=== PATIENT | male | born 1970 | race Two or more races ===

== ENCOUNTER 2017-10-10 08:40 | Inpatient (IN) | payer OTHER ==
[2017-10-10 09:54] VITALS: BMI 23.5
--- NOTE | 2017-10-10 12:14 | HP ---
COWS - Scale Resting Pulse: 0= [place] 80 or Below Sweatin= Chills/Flushing Restless Observation: 1= Difficult to Sit Still Pupil Size: 1= Pupils >than Normal Bone or Joint Aches: 1= Mild Discomfort Runny Nose/ Eye Tearin= Nasal Congestion GI Upset > 30mins: 2= Nausea/Diarrhea Tremor Observation: 1= Tremor Reform, Not Seen Yawning Observation: 2= >3x During Session Anxiety or Irritability: 2=Irritable/Anxious Goose Flesh Skin: 3=Piloerection COWS Score: 15 Admission ROS S - [facility] Chief Complaint: heroin withdrawal sx Allergies/Adverse Reactions: Allergies Allergy/AdvReac Type Severity Reaction Status Date / Time No Known Allergies Allergy Verified 10/10/17 10:07 History of Present Illness: 47 yo m starte d using heroin several monts ago requesting inpatient detox for opiod withdrawal sx, sniffing 1-2 bundles daily. PMHX neg, no suicidal ideation , no seizures. thirsty, anxiety, depression and insomnia Exam Limitations: No Limitations - Ebola screening Have you traveled outside of the country in the last 21 days: No (N) Have you had contact with anyone from an Ebola affected area: No Have you been sick,other than usual withdrawal symptoms: No Do you have a fever: No - Review of Systems Constitutional: Chills, Diaphoresis, Night Sweats, Changes in sleep, Unintentional Wgt. Loss EENT: reports: Tearing, Nose Congestion Respiratory: reports: No Symptoms reported Cardiac: reports: No Symptoms Reported GI: reports: Constipated, Nausea, Poor Appetite, Poor Fluid Intake, Vomiting, Indigestion, Abdominal cramping : reports: No Symptoms Reported Musculoskeletal: reports: Back Pain, Joint Pain, Muscle Pain Integumentary: reports: Flushing, Sweating Neuro: reports: Numbness, Tingling, Tremors Endocrine: reports: Increased Thirst Hematology: reports: No Symptoms Reported Psychiatric: reports: Judgement Intact, Mood/Affect Appropiate, Orientated x3, Anxious, Depressed Other Systems: Reviewed and Negative Patient History - Patient Medical History Hx Anemia: No Hx Asthma: No Hx Chronic Obstructive Pulmonary Disease (COPD): No Hx Cancer: No Hx Cardiac Disorders: No Hx Congestive Heart Failure: No Hx Hypertension: No Hx Hypercholesterolemia: No Hx Pacemaker: No HX Cerebrovascular Accident: No Hx Seizures: No Hx Dementia: No Hx Diabetes: No Hx Gastrointestinal Disorders: Yes (acid reflux) Hx Liver Disease: No Hx Genitourinary Disorders: No Hx Sexually Transmitted Disorders: No Hx Renal Disease (ESRD): No Hx Thyroid Disease: No Hx Human Immunodeficiency Virus (HIV): No Hx Hepatitis C: No Hx Depression: Yes (withdrawal sx) Hx Suicide Attempt: No Hx Bipolar Disorder: No Hx Schizophrenia: No - Patient Surgical History Past Surgical History: No Hx Neurologic Surgery: No Hx Cataract Extraction: No Hx Cardiac Surgery: No Hx Lung Surgery: No Hx Breast Surgery: No Hx Breast Biopsy: No Hx Abdominal Surgery: No Hx Appendectomy: No Hx Cholecystectomy: No Hx Genitourinary Surgery: No Hx Section: No Hx Orthopedic Surgery: Yes Anesthesia Reaction: No - PPD History Previous Implant?: Yes Documented Results: Negative w/o proof Implanted On Prior R Admission?: No PPD to be Administered?: Yes - Reproductive History Patient is a Female of Child Bearing Age (11 -55 yrs old): No Patient : No - Smoking Cessation Smoking history: Current every day smoker Have you smoked in the past 12 months: Yes Aproximately how many cigarettes per day: 20 Hx Chewing Tobacco Use: No Initiated information on smoking cessation: Yes 'Breaking Loose' booklet given: 10/10/17 - Substance & Tx. History Hx Alcohol Use: No Hx Substance Use: Yes Substance Use Type: Heroin, Opiates Hx Substance Use Treatment: No (1st episode, court mandated) - Substances Abused Heroin Route: Inhalation Frequency: Daily Amount used: 10 bags Age of first use: 30 Date of Last Use: 10/09/17 Family Disease History - Family Disease History Family History: Denies Admission Physical Exam [facility] - Vital Signs Vital Signs: Vital Signs - 24 hr 10/10/17 09:50 Temperature 97 F L Pulse Rate 76 Respiratory 18 Rate Blood Pressure 121/90 - Physical General Appearance: Yes: Nourished, Appropriately Dressed, Disheveled, Mild Distress, Thin, Tremorous, Irritable, Sweating, Anxious HEENTM: Yes: EOMI, Hearing grossly Normal, Normocephalic, Normal Voice, PATEL, Pharynx Normal, Nasal Congestion, Rhinorrhea Respiratory: Yes: Within Normal Limits, Chest Non-Tender, Lungs Clear, Normal Breath Sounds, No Respiratory Distress, No Accessory Muscle Use Neck: Yes: Within Normal Limits, No masses,lesions,Nodules, Supple, Trachea in good position Breast: Yes: Breast Exam Deferred Cardiology: Yes: Within Normal Limits, Regular Rhythm, Regular Rate, S1, S2 Abdominal: Yes: Within Normal Limits, Normal Bowel Sounds, Non Tender, Flat, Soft Genitourinary: Yes: Within Normal Limits Back: Yes: Within Normal Limits, Normal Inspection Musculoskeletal: Yes: full range of Motion, Gait Steady, Pelvis Stable, Back pain Extremities: Yes: Normal Capillary Refill, Normal Range of Motion, Non-Tender, Tremors Neurological: Yes: commodity merchant II-XII NML intact, Fully Oriented, Alert, Motor Strength 5/5, Normal Response, Depressed Affect Integumentary: Yes: Normal Color, Dry, Warm Lymphatic: Yes: Within Normal Limits - Addiitonal Findings: withdrawal sx - Diagnostic (1) Opioid dependence with withdrawal Current Visit: Yes Status: Acute (2) Dehydration Current Visit: Yes Status: Acute (3) Depression Current Visit: Yes Status: Acute (4) Nicotine dependence Current Visit: Yes Status: Acute (5) GERD (gastroesophageal reflux disease) Current Visit: Yes Status: Acute Cleared for Admission [facility] - Detox or Rehab [facility] Level of Care: Medically Managed Detox Regimen/Protocol: Methadone [facility] Breath Alcohol Content Breath Alcohol Content: 0 Urine Drug Screen - Results Drug Screen Negative: No Urine Drug Screen Results: OPI-Opiates, OXY-Oxycodone
[2017-10-10] MEDS ORDERED: LOPERAMIDE HCL 2 MG CAPSULE PO PRN (12:16)
[2017-10-10] MEDS ORDERED: hydrOXYzine PAMOATE 50 MG CAPSULE (FP) PO PRN (12:16)
[2017-10-10] MEDS ORDERED: MENTHOL/PHENOL 1 EACH UD MM PRN (12:16)
[2017-10-10] MEDS ORDERED: ACETAMINOPHEN 325 MG TABLET (FP) PO PRN (12:16)
[2017-10-10] MEDS ORDERED: MAGNESIUM HYDROX 2400MG/30ML ORAL SUSPENSION 30 ML CUP PO PRN (12:16)
[2017-10-10] MEDS ORDERED: IBUPROFEN 400 MG TABLET (FP) PO PRN (12:16)
[2017-10-10] MEDS ORDERED: guaiFENesin/D-METHORPHAN HB 10 ML UNIT-DOSE CUPS PO PRN (12:16)
[2017-10-10] MEDS ORDERED: P-EPHED 60MG/TRIPROLIDI 2.5MG TABLET PO PRN (12:16)
[2017-10-10] MEDS ORDERED: MAGNESIUM CITRATE 300 ML BOTTLE PO PRN (12:16)
[2017-10-10] MEDS ORDERED: MAG HYDROX/AL HYDROX/SIMETH 30 ML UNIT-DOSE CUP PO PRN (12:16)
[2017-10-10] MEDS ORDERED: NICOTINE POLACRILEX 4 MG GUM BUC PRN (12:16)
[2017-10-10] MEDS ORDERED: METHADONE HCL 10 MG TABLET (FOR DETOX USE ONLY) PO ONE ×2 (12:45→23:00)
[2017-10-10] MEDS: diazePAM 5 MG TABLET PO PRN ×2 (13:55→22:17)
[2017-10-10] MEDS: NICOTINE 21 MG/24 HOURS TOPICAL PATCH TD SCH (13:56)
--- NOTE | 2017-10-10 16:45 | CONSULT ---
[facility] Psychiatric Consult - Data Date of interview: 10/10/17 Admission source: [facility] Identifying data: Pt. is a 47 year old single male, father of one, employed ( "off the books"), and lives alone in an apartment. This is patient's first admission to detox. Pt. admitted to for opiate dependence. Substance Abuse History: Following information confirmed with Mr. Esparza: Smoking Cessation. Smoking history: Current every day smoker. Have you smoked in the past 12 months: Yes. Aproximately how many cigarettes per day: 20. Hx Chewing Tobacco Use: No. Initiated information on smoking cessation: Yes. ' Breaking Loose' booklet given: 10/10/17. - Substance & Tx. History. Hx Alcohol Use: No. Hx Substance Use: Yes. Substance Use Type: Heroin, Opiates. Hx Substance Use Treatment: No (1st episode, court mandated). - Substances Abused. Heroin. Route: Inhalation. Frequency: Daily. Amount used: 10 bags. Age of first use: 30. Date of Last Use: 10/09/17 Medical History: Denies. Psychiatric History: Pt. denies h/o psychiatric hospitalizations, suicide attempts, and outpatient care. Physical/Sexual Abuse/Trauma History: Denies. Mental Status Exam - Mental Status Exam Alert and Oriented to: Time, Place, Person Cognitive Function: Good Patient Appearance: Well Groomed Mood: Withdrawn Affect: Mood Congruent Patient Behavior: Fatigued, Cooperative Speech Pattern: Delayed Voice Loudness: Moderately Soft/Quiet Thought Process: Goal Oriented Thought Disorder: Not Present Hallucinations: Denies Suicidal Ideation: Denies Homicidal Ideation: Denies Insight/Judgement: Poor Sleep: Poorly Appetite: Poor Muscle strength/Tone: Normal Gait/Station: Normal Psychiatric Findings - Problem List ([place] 1, 2,3) (1) Insomnia Current Visit: Yes Status: Acute (2) Nicotine dependence Current Visit: Yes Status: Acute (3) Opioid dependence with withdrawal Current Visit: Yes Status: Acute - Initial Treatment Plan Initial Treatment Plan: Psychoeducation provided. Detoxification provided. Ambien 5mg qhs ordered for insomnia. Benefits and side effects (sleep walking) discussed. Verbal consent given. Will continue to monitor.
[2017-10-10] MEDS: ZOLPIDEM TARTRATE 5 MG TABLET PO PRN (22:17)
[2017-10-10] MEDS: THIAMINE HCL 100 MG TABLET (FP) PO SCH (22:17)
[2017-10-10 22:37] LABS: URINE APPEARANCE TURBID; URINE BILIRUBIN NEGATIVE (NEGATIVE); URINE BLOOD NEGATIVE (NEGATIVE); URINE COLOR YELLOW; URINE GLUCOSE (UA) NEGATIVE (NEGATIVE); URINE KETONE TRACE (NEGATIVE); URINE LEUK ESTERASE NEGATIVE (NEGATIVE); URINE NITRITE NEGATIVE (NEGATIVE); URINE PROTEIN NEGATIVE (NEGATIVE); URINE UROBILINOGEN 4.0 E.U/dl mg/dL (0.2-1.0)
[2017-10-11] MEDS ORDERED: METHADONE HCL 10 MG TABLET (FOR DETOX USE ONLY) PO ONE (10:00)
[2017-10-11] MEDS: diazePAM 5 MG TABLET PO PRN ×2 (10:02→22:07)
[2017-10-11] MEDS: PRENATAL VITAMINS W/ FOLIC ACID TABLET (FP) PO SCH (10:02)
[2017-10-11] MEDS: NICOTINE 21 MG/24 HOURS TOPICAL PATCH TD SCH (10:03)
[2017-10-11 11:06] LABS: HEMATOCRIT 35.9 % (35.4-49); HEMOGLOBIN 12.2 GM/dL (11.7-16.9); MCH 30.4 pg (25.7-33.7); MCHC 34.1 g/dl (32.0-35.9); MEAN CELL VOLUME 89.1 fl (80-96); MEAN PLT VOLUME 9.2 fl (7.5-11.1); PLATELET COUNT 262 K/MM3 (134-434); RBC 4.03 M/mm3 (4.00-5.60); WHITE BLOOD COUNT 6.9 K/mm3 (4.0-10.0)
[2017-10-11 11:15] LABS: ANION GAP 8 (8-16); BILIRUBIN,TOTAL 0.5 mg/dL (0.2-1.0); BLOOD UREA NITROGEN 15 mg/dL (7-18); CHLORIDE 101 mmol/L (98-107); CO2 31 mmol/L (21-32); CREATININE 0.9 mg/dL (0.7-1.3); GLUCOSE,RANDOM 90 mg/dL (74-106); POTASSIUM 4.3 mmol/L (3.5-5.1); SGOT/AST 19 U/L (15-37); SGPT/ALT 25 U/L (12-78); SODIUM 140 mmol/L (136-145)
[2017-10-11 11:16] LABS: ALK PHOS 76 U/L (45-117); TOT PROT 7.5 g/dl (6.4-8.2)
--- NOTE | 2017-10-11 11:58 | EKG ---
Test Reason : Blood Pressure : / mmHG Vent. Rate : 061 BPM Atrial Rate : 061 BPM P-R Int : 178 ms QRS Dur : 080 ms QT Int : 394 ms P-R-T Axes : 064 075 045 degrees QTc Int : 396 ms NORMAL SINUS RHYTHM NORMAL ECG NO PREVIOUS ECGS AVAILABLE Confirmed by MD MORAIMA, EVELINE ([id number]) on 10/11/2017 11:57:47 AM Referred By: Confirmed By:EVELINE VALERA MD
--- NOTE | 2017-10-11 13:01 | PN ---
[facility] COWS - Scale Resting Pulse: 0= [place] 80 or Below Sweatin= Chills/Flushing Restless Observation: 3= Extraneous Movement Pupil Size: 1= Pupils >than Normal Bone or Joint Aches: 2= Severe Diffuse Aches Runny Nose/ Eye Tearin= Runny Nose/Eyes GI Upset > 30mins: 3= Vomiting/Diarrhea Tremor Observation of Outstretched Hands: 2= Slight Tremor Visible Yawning Observation: 1= 1-2x During Session Anxiety or Irritability: 2=Irritable/Anxious Goose Flesh Skin: 0=Smooth Skin COWS Score: 17 S Progress Note (SOAP) Subjective: ALERT,IRRITABLE,ANXIOUS,INTERRUPTED SLEEP,TREMOR,PAIN IN THE BODY AND BACK Objective: 10/11/17 12:59 Vital Signs Temperature 99.9 F H 10/11/17 11:41 Pulse Rate 60 10/11/17 11:41 Respiratory Rate 16 10/11/17 11:41 Blood Pressure 110/72 10/11/17 11:41 O2 Sat by Pulse Oximetry (%) EKG NSR,NORMAL ECG Laboratory Last Values WBC 6.9 K/mm3 (4.0-10.0) 10/11/17 05:40 RBC 4.03 M/mm3 (4.00-5.60) 10/11/17 05:40 Hgb 12.2 GM/dL (11.7-16.9) 10/11/17 05:40 Hct 35.9 % (35.4-49) 10/11/17 05:40 MCV 89.1 fl (80-96) 10/11/17 05:40 MCH 30.4 pg (25.7-33.7) 10/11/17 05:40 MCHC 34.1 g/dl (32.0-35.9) 10/11/17 05:40 RDW 14.0 % (11.9-15.9) 10/11/17 05:40 Plt Count 262 K/MM3 (134-434) 10/11/17 05:40 MPV 9.2 fl (7.5-11.1) 10/11/17 05:40 Sodium 140 mmol/L (136-145) 10/11/17 05:40 Potassium 4.3 mmol/L (3.5-5.1) 10/11/17 05:40 Chloride 101 mmol/L (98-107) 10/11/17 05:40 Carbon Dioxide 31 mmol/L (21-32) 10/11/17 05:40 Anion Gap 8 (8-16) 10/11/17 05:40 BUN 15 mg/dL (7-18) 10/11/17 05:40 Creatinine 0.9 mg/dL (0.7-1.3) 10/11/17 05:40 Creat Clearance w eGFR > 60 (>60) 10/11/17 05:40 Random Glucose 90 mg/dL (74-106) 10/11/17 05:40 Calcium 9.0 mg/dL (8.5-10.1) 10/11/17 05:40 Total Bilirubin 0.5 mg/dL (0.2-1.0) 10/11/17 05:40 AST 19 U/L (15-37) 10/11/17 05:40 ALT 25 U/L (12-78) 10/11/17 05:40 Alkaline Phosphatase 76 U/L (45-117) 10/11/17 05:40 Total Protein 7.5 g/dl (6.4-8.2) 10/11/17 05:40 Albumin 4.0 g/dl (3.4-5.0) 10/11/17 05:40 Urine Color Yellow 10/10/17 21:30 Urine Appearance Turbid 10/10/17 21:30 Urine pH 5.0 (5.0-8.0) 10/10/17 21:30 Ur Specific [place] 1.030 (1.001-1.035) 10/10/17 21:30 Urine Protein Negative (NEGATIVE) 10/10/17 21:30 Urine Glucose (UA) Negative (NEGATIVE) 10/10/17 21:30 Urine Ketones Trace (NEGATIVE) H 10/10/17 21:30 Urine Blood Negative (NEGATIVE) 10/10/17 21:30 Urine Nitrite Negative (NEGATIVE) 10/10/17 21:30 Urine Bilirubin Negative (NEGATIVE) 10/10/17 21:30 Urine Urobilinogen 4.0 e.u/dl mg/dL (0.2-1.0) 10/10/17 21:30 Ur Leukocyte Esterase Negative (NEGATIVE) 10/10/17 21:30 10/11/17 13:00 LABS PENDING Assessment: 10/11/17 13:00 WITHDRAWAL SYMPTOM Plan: CONTINUE DETOX
[2017-10-11 13:04] LABS: SICKLE CELL SCREEN NEGATIVE (NEGATIVE)
[2017-10-11] MEDS: ZOLPIDEM TARTRATE 5 MG TABLET PO PRN (22:07)
[2017-10-11] MEDS: THIAMINE HCL 100 MG TABLET (FP) PO SCH (22:07)
[2017-10-12] MEDS ORDERED: METHADONE HCL 5 MG TABLET (FOR DETOX USE ONLY) PO ONE (10:00)
[2017-10-12] MEDS: NICOTINE 21 MG/24 HOURS TOPICAL PATCH TD SCH (10:05)
[2017-10-12] MEDS: PRENATAL VITAMINS W/ FOLIC ACID TABLET (FP) PO SCH (10:05)
--- NOTE | 2017-10-12 10:15 | PN ---
[facility] COWS - Scale Resting Pulse: 0= [place] 80 or Below Sweatin= Chills/Flushing Restless Observation: 1= Difficult to Sit Still Pupil Size: 1= Pupils >than Normal Bone or Joint Aches: 2= Severe Diffuse Aches Runny Nose/ Eye Tearin= Runny Nose/Eyes GI Upset > 30mins: 1= Stomach Cramp Tremor Observation of Outstretched Hands: 2= Slight Tremor Visible Yawning Observation: 2= >3x During Session Anxiety or Irritability: 2=Irritable/Anxious Goose Flesh Skin: 0=Smooth Skin COWS Score: 14 S Progress Note (SOAP) Subjective: 47 years old male admitted for heroin detox, requested early discharge upon admission, modification had been made for early discharge. 10/14/17 patient demands to leave 10/13/17 which is two days prior to routine completion 10/15/17 patient informed that consider follow the plan as arranged upon admission joint aches running nose restlessness Objective: 10/12/17 10:16 Vital Signs Temperature 98.4 F 10/12/17 08:01 Pulse Rate 68 10/12/17 08:01 Respiratory Rate 18 10/12/17 08:01 Blood Pressure 96/60 10/12/17 08:01 O2 Sat by Pulse Oximetry (%) Laboratory Last Values WBC 6.9 K/mm3 (4.0-10.0) 10/11/17 05:40 RBC 4.03 M/mm3 (4.00-5.60) 10/11/17 05:40 Hgb 12.2 GM/dL (11.7-16.9) 10/11/17 05:40 Hct 35.9 % (35.4-49) 10/11/17 05:40 MCV 89.1 fl (80-96) 10/11/17 05:40 MCH 30.4 pg (25.7-33.7) 10/11/17 05:40 MCHC 34.1 g/dl (32.0-35.9) 10/11/17 05:40 RDW 14.0 % (11.9-15.9) 10/11/17 05:40 Plt Count 262 K/MM3 (134-434) 10/11/17 05:40 MPV 9.2 fl (7.5-11.1) 10/11/17 05:40 Sickle Cell Screen Negative (NEGATIVE) 10/11/17 05:40 Sodium 140 mmol/L (136-145) 10/11/17 05:40 Potassium 4.3 mmol/L (3.5-5.1) 10/11/17 05:40 Chloride 101 mmol/L (98-107) 10/11/17 05:40 Carbon Dioxide 31 mmol/L (21-32) 10/11/17 05:40 Anion Gap 8 (8-16) 10/11/17 05:40 BUN 15 mg/dL (7-18) 10/11/17 05:40 Creatinine 0.9 mg/dL (0.7-1.3) 10/11/17 05:40 Creat Clearance w eGFR > 60 (>60) 10/11/17 05:40 Random Glucose 90 mg/dL (74-106) 10/11/17 05:40 Calcium 9.0 mg/dL (8.5-10.1) 10/11/17 05:40 Total Bilirubin 0.5 mg/dL (0.2-1.0) 10/11/17 05:40 AST 19 U/L (15-37) 10/11/17 05:40 ALT 25 U/L (12-78) 10/11/17 05:40 Alkaline Phosphatase 76 U/L (45-117) 10/11/17 05:40 Total Protein 7.5 g/dl (6.4-8.2) 10/11/17 05:40 Albumin 4.0 g/dl (3.4-5.0) 10/11/17 05:40 Urine Color Yellow 10/10/17 21:30 Urine Appearance Turbid 10/10/17 21:30 Urine pH 5.0 (5.0-8.0) 10/10/17 21:30 Ur Specific [place] 1.030 (1.001-1.035) 10/10/17 21:30 Urine Protein Negative (NEGATIVE) 10/10/17 21:30 Urine Glucose (UA) Negative (NEGATIVE) 10/10/17 21:30 Urine Ketones Trace (NEGATIVE) H 10/10/17 21:30 Urine Blood Negative (NEGATIVE) 10/10/17 21:30 Urine Nitrite Negative (NEGATIVE) 10/10/17 21:30 Urine Bilirubin Negative (NEGATIVE) 10/10/17 21:30 Urine Urobilinogen 4.0 e.u/dl mg/dL (0.2-1.0) 10/10/17 21:30 Ur Leukocyte Esterase Negative (NEGATIVE) 10/10/17 21:30 lab noted Assessment: 10/12/17 10:16 withdrawal sx Plan: continue detox recommend follow early discharge plan as arranged upon admission 10/14/17
[2017-10-12] MEDS: diazePAM 5 MG TABLET PO PRN (22:12)
[2017-10-12] MEDS: THIAMINE HCL 100 MG TABLET (FP) PO SCH (22:12)
[2017-10-12] MEDS: ZOLPIDEM TARTRATE 5 MG TABLET PO PRN (22:12)
--- NOTE | 2017-10-13 09:21 | PN ---
S Progress Note (SOAP) Subjective: alert oriented x 3 tolerates food and fluid well mild sweat no tremor Objective: 10/13/17 09:21 Vital Signs Temperature 97.9 F 10/13/17 06:00 Pulse Rate 60 10/13/17 06:00 Respiratory Rate 16 10/13/17 06:00 Blood Pressure 104/64 10/13/17 06:00 O2 Sat by Pulse Oximetry (%) Laboratory Last Values WBC 6.9 K/mm3 (4.0-10.0) 10/11/17 05:40 RBC 4.03 M/mm3 (4.00-5.60) 10/11/17 05:40 Hgb 12.2 GM/dL (11.7-16.9) 10/11/17 05:40 Hct 35.9 % (35.4-49) 10/11/17 05:40 MCV 89.1 fl (80-96) 10/11/17 05:40 MCH 30.4 pg (25.7-33.7) 10/11/17 05:40 MCHC 34.1 g/dl (32.0-35.9) 10/11/17 05:40 RDW 14.0 % (11.9-15.9) 10/11/17 05:40 Plt Count 262 K/MM3 (134-434) 10/11/17 05:40 MPV 9.2 fl (7.5-11.1) 10/11/17 05:40 Sickle Cell Screen Negative (NEGATIVE) 10/11/17 05:40 Sodium 140 mmol/L (136-145) 10/11/17 05:40 Potassium 4.3 mmol/L (3.5-5.1) 10/11/17 05:40 Chloride 101 mmol/L (98-107) 10/11/17 05:40 Carbon Dioxide 31 mmol/L (21-32) 10/11/17 05:40 Anion Gap 8 (8-16) 10/11/17 05:40 BUN 15 mg/dL (7-18) 10/11/17 05:40 Creatinine 0.9 mg/dL (0.7-1.3) 10/11/17 05:40 Creat Clearance w eGFR > 60 (>60) 10/11/17 05:40 Random Glucose 90 mg/dL (74-106) 10/11/17 05:40 Calcium 9.0 mg/dL (8.5-10.1) 10/11/17 05:40 Total Bilirubin 0.5 mg/dL (0.2-1.0) 10/11/17 05:40 AST 19 U/L (15-37) 10/11/17 05:40 ALT 25 U/L (12-78) 10/11/17 05:40 Alkaline Phosphatase 76 U/L (45-117) 10/11/17 05:40 Total Protein 7.5 g/dl (6.4-8.2) 10/11/17 05:40 Albumin 4.0 g/dl (3.4-5.0) 10/11/17 05:40 Urine Color Yellow 10/10/17 21:30 Urine Appearance Turbid 10/10/17 21:30 Urine pH 5.0 (5.0-8.0) 10/10/17 21:30 Ur Specific [place] 1.030 (1.001-1.035) 10/10/17 21:30 Urine Protein Negative (NEGATIVE) 10/10/17 21:30 Urine Glucose (UA) Negative (NEGATIVE) 10/10/17 21:30 Urine Ketones Trace (NEGATIVE) H 10/10/17 21:30 Urine Blood Negative (NEGATIVE) 10/10/17 21:30 Urine Nitrite Negative (NEGATIVE) 10/10/17 21:30 Urine Bilirubin Negative (NEGATIVE) 10/10/17 21:30 Urine Urobilinogen 4.0 e.u/dl mg/dL (0.2-1.0) 10/10/17 21:30 Ur Leukocyte Esterase Negative (NEGATIVE) 10/10/17 21:30 RPR Titer Nonreactive (NONREACTIVE) 10/11/17 05:40 lab noted Assessment: 10/13/17 09:21 mild withdrawal sx Plan: medically supervised detox
[2017-10-13] MEDS ORDERED: METHADONE HCL 5 MG TABLET (FOR DETOX USE ONLY) PO ONE ×2 (10:00)
[2017-10-13] MEDS ORDERED: METHADONE HCL 10 MG TABLET (FOR DETOX USE ONLY) PO ONE (10:00)
[2017-10-13] MEDS: NICOTINE 21 MG/24 HOURS TOPICAL PATCH TD SCH (10:28)
[2017-10-13] MEDS: PRENATAL VITAMINS W/ FOLIC ACID TABLET (FP) PO SCH (10:28)
--- NOTE | 2017-10-13 10:58 | EKG ---
Test Reason : Blood Pressure : / mmHG Vent. Rate : 073 BPM Atrial Rate : 073 BPM P-R Int : 178 ms QRS Dur : 086 ms QT Int : 380 ms P-R-T Axes : 065 075 048 degrees QTc Int : 418 ms NORMAL SINUS RHYTHM NORMAL ECG WHEN COMPARED WITH ECG OF 10-OCT-2017 14:12, NO SIGNIFICANT CHANGE WAS FOUND Confirmed by ROSANA AMARO MD ([id number]) on 10/13/2017 10:58:20 AM Referred By: Confirmed By:ROSANA AMARO MD
[2017-10-13] MEDS: THIAMINE HCL 100 MG TABLET (FP) PO SCH (22:16)
[2017-10-13] MEDS: ZOLPIDEM TARTRATE 5 MG TABLET PO PRN (22:17)
[2017-10-14] MEDS ORDERED: METHADONE HCL 5 MG TABLET (FOR DETOX USE ONLY) PO ONE (06:00)
[2017-10-14 06:41] VITALS: BP 110/58; PULSE 64; TEMP 98.1
--- NOTE | 2017-10-14 08:09 | DS ---
[facility] Detox Discharge Summary Admission Date: 10/10/17 Discharge Date: 10/14/17 - History Present History: Opioid Dependence Additional Comments: follow up with after care program as arrangement Pertinent Past History: nicotine dependence gerd insomnia - Physical Exam Results Vital Signs: Vital Signs Temperature 98.1 F 10/14/17 06:00 Pulse Rate 64 10/14/17 06:00 Respiratory Rate 18 10/14/17 06:00 Blood Pressure 110/58 10/14/17 06:00 O2 Sat by Pulse Oximetry (%) Pertinent Admission Physical Exam Findings: withdrawal signs and symptom - Treatment Hospital Course: Detox Protocol Followed, Detoxed Safely, Responded well, Discharged Condition Good Patient has Accepted a Rehab Referral to: declined - Medication Discharge Medications: Ambulatory Orders NK [No Known Home Medication] 10/10/17 - Diagnosis (1) Opioid dependence with withdrawal Status: Acute (2) Depression Status: Acute (3) GERD (gastroesophageal reflux disease) Status: Acute (4) Insomnia Status: Acute (5) Nicotine dependence Status: Acute - AMA Did Patient Leave Against Medical Advice: No
[2017-10-14] MEDS ORDERED: METHADONE HCL 10 MG TABLET (FOR DETOX USE ONLY) PO ONE (10:00)
[2017-10-15] MEDS ORDERED: METHADONE HCL 5 MG TABLET (FOR DETOX USE ONLY) PO ONE (06:00)
== END 2017-10-14 06:12 | disposition home or self-care (01) | DRG 773 ==
LOC: YASAS 08:40 → Y6N 12:39
PROVIDERS: ADMIT Internal Medicine; ATTEND Internal Medicine
PROC: HZ2ZZZZ Detoxification Services for Substance Abuse Treatment (ICD-10-PCS; principal; 2017-10-10)
DX: F11.23 Opioid dependence with withdrawal (principal); F17.210 Nicotine dependence, cigarettes, uncomplicated; F32.9 Major depressive disorder, single episode, unspecified; K21.9 Gastro-esophageal reflux disease without esophagitis; G47.00 Insomnia, unspecified; E86.0 Dehydration
CPT/HCPCS: 36415; 80053; 81003; 85027; 85660; 86593; 93005; 93010